=== PATIENT | male | born 1960 | race Caucasian/White ===

== ENCOUNTER 2017-12-06 13:13 | Outpatient (CLI) | payer BC ==
--- NOTE | 2017-12-06 15:45 | CT ---
CT THORAX WITH IV CONTRAST: DATE: 12/06/17. HISTORY: Followup right-sided pulmonary nodule. COMPARISON: 10/20/16. FINDINGS: The previously noted sub pleural-based nodular density in the right upper lobe posteriorly is no long er visualized and there is a mild area of pleural and parenchymal scarring in this region. Again not ed are changes of COPD with prominent bullous emphysematous changes in the right upper lobe. There is a new approximately 6 mm nodular density seen within the left lower lobe with a closely lynne cent smaller nodular density also present which is less well defined. The approximately 6 mm nodule demonstrates a central area of lucency on the axial images which is not appreciated on coronal reform atted images. This could be related to a very tiny area of cavitation. No additional pulmonary nodu le or mass is seen. There is evidence of prior granulomatous disease. There is no evidence of lymphadenopathy. No other interval change from prior exam. IMPRESSION: 1. Two small nodular densities left lower lobe, the largest measuring approximately 6 mm. Findings could potentially represent infectious process. Followup CT scan examination in 4-6 months is recomm ended. 2. Resolution of the pleural-based nodular density right upper lobe. There is scarring now present in this region. 3. Chronic obstructive pulmonary disease. POS: [facility]
[2017-12-06] MEDS ORDERED: Iopamidol 370 76% 100 ML VIAL ONE (16:23)
== END 2017-12-06 13:14 | disposition home or self-care (01) ==
LOC: CT 13:13
PROVIDERS: ATTEND Internal Medicine
DX: R91.1 Solitary pulmonary nodule (principal); F17.200 Nicotine dependence, unspecified, uncomplicated; J44.9 Chronic obstructive pulmonary disease, unspecified; J98.4 Other disorders of lung
CPT/HCPCS: 71260

== ENCOUNTER 2017-12-19 11:35 | Emergency (ER) | payer BC ==
[2017-12-19 12:22] LABS: #Eosinphils 0.1 thou/uL (0.0-0.7); #Lymphocytes 1.2 thou/uL (1.20-3.40); #Monocytes 0.6 thou/uL (0.11-0.59); %Basophils 0.5 % (0.0-1.0); %Eosinophils 1.1 % (0.0-10.0); %Lymphocytes 14.6 % (21.0-51.0); %Monocytes 7.6 % (0.0-10.0); %Neutrophils 76.2 % (42.0-75.0); Hemoglobin 15.9 g/dL (14.0-18.0); Mean Corpuscular HGB CONC 33.7 g/dL (32.0-36.0); Mean Corpuscular Hemoglobin 30.7 pg (27.0-31.0); Mean Corpuscular Volume 91.2 fl (80.0-94.0); Mean Platelet Volume 6.9 fL (7.4-10.4); Platelet Count 220 thou/uL (130-400); RBC Distribution Width 12.7 % (11.5-14.5); Red Blood Cell (RBC) Count 5.18 mill/uL (4.70-6.10); White Blood Cell (WBC) Count 7.9 thou/uL (4.8-10.8)
[2017-12-19] MEDS ORDERED: Nitroglycerin 2% Ointment 1 INCH/1 GM Packet ONE (12:42)
[2017-12-19 12:44] LABS: CKMB 2.8 ng/mL (0-6.6); Troponin I Less than 0.010 ng/mL (< 0.028)
[2017-12-19 12:52] LABS: ALT (SGPT) 30 U/L (8-55); AST (SGOT) 18 U/L (5-34); Albumin 4.2 g/dL (3.5-5.0); Alkaline Phosphatase 69 U/L (40-150); Anion Gap 11 mmol/L (10-20); BUN (Urea Nitrogen) 18 mg/dL (8.4-25.7); Bilirubin, Total 0.3 mg/dL (0.2-1.2); CK (CPK) 109 U/L (30-200); Calc. Creatinine Clearance 0 mL/min (70-130); Calcium 9.9 mg/dL (7.8-10.44); Carbon Dioxide 23 mmol/L (22-29); Chloride 106 mmol/L (98-107); Estimated GFR-MDRD 71; Glucose 105 mg/dL (70-105); Lipase 23 U/L (8-78); Potassium 4.1 mmol/L (3.5-5.1); Protein, Total 7.2 g/dL (6.0-8.3); Sodium 136 mmol/L (136-145)
--- NOTE | 2017-12-19 13:20 | RAD ---
CHEST 1 VIEW: HISTORY: Dyspnea. COMPARISON: CT chest from 12/06/17. FINDINGS: Cardiac silhouette is magnified by projection. Pulmonary vasculature is unremarkable. Mediastinum i s midline with aortic calcification. There is no confluent airspace consolidation or evidence of pne umothorax. IMPRESSION: Atherosclerosis. Stable radiographic appearance of the chest. POS: [facility]
== END 2017-12-19 14:09 | disposition home or self-care (01) ==
LOC: ERS 11:35
DX: I10 Essential (primary) hypertension (principal); E03.9 Hypothyroidism, unspecified; E78.5 Hyperlipidemia, unspecified; E78.2 Mixed hyperlipidemia; J45.909 Unspecified asthma, uncomplicated; F17.210 Nicotine dependence, cigarettes, uncomplicated; Z79.899 Other long term (current) drug therapy; Z79.82 Long term (current) use of aspirin
CPT/HCPCS: 36415; 71045; 80053; 82553; 83690; 83880; 84484; 85025; 85379; 93005; 96360

== ENCOUNTER 2023-10-21 09:21 | Outpatient (CLI) | payer BC | END 2023-10-21 09:22 | disposition home or self-care (01) | LOC: RAD 09:21 | PROVIDERS: ATTEND Family Medicine | DX: R06.00 Dyspnea, unspecified (principal); J98.4 Other disorders of lung | CPT/HCPCS: 71046 ==

== ENCOUNTER 2024-10-17 09:36 | Outpatient (CLI) | payer BC | END 2024-10-17 09:37 | disposition home or self-care (01) | LOC: RAD 09:36 | PROVIDERS: ATTEND Internal Medicine Critical Care Medicine | DX: R06.00 Dyspnea, unspecified (principal) | CPT/HCPCS: 71046 ==

== ENCOUNTER 2024-12-27 08:17 | Outpatient (CLI) | payer MEDICARE | END 2024-12-27 08:18 | disposition home or self-care (01) | LOC: SCSMRI 08:17 | PROVIDERS: ATTEND Family Medicine | DX: M54.12 Radiculopathy, cervical region (principal); M25.512 Pain in left shoulder; G89.29 Other chronic pain; R29.898 Other symptoms and signs involving the musculoskeletal system; S46.012A Strain of muscle(s) and tendon(s) of the rotator cuff of left shoulder, initial encounter; S43.432A Superior glenoid labrum lesion of left shoulder, initial encounter; M65.812 Other synovitis and tenosynovitis, left shoulder; M75.92 Shoulder lesion, unspecified, left shoulder; M48.02 Spinal stenosis, cervical region; R60.0 Localized edema | CPT/HCPCS: 72141 ==

== ENCOUNTER 2025-06-15 08:37 | Outpatient (CLI) | payer MEDICARE ==
[2025-06-15 09:37] LABS: Estimated GFR - POC 66.0
[2025-06-15] MEDS ORDERED: Iopamidol 370 76% 100 ML VIAL ONE (11:33)
== END 2025-06-15 08:38 | disposition home or self-care (01) ==
LOC: CT 08:37
PROVIDERS: ATTEND Physician Assistant Medical
DX: R10.32 Left lower quadrant pain (principal); K92.1 Melena; N32.3 Diverticulum of bladder; K57.30 Diverticulosis of large intestine without perforation or abscess without bleeding; R16.0 Hepatomegaly, not elsewhere classified; I70.0 Atherosclerosis of aorta; N28.1 Cyst of kidney, acquired; N32.89 Other specified disorders of bladder; M47.815 Spondylosis without myelopathy or radiculopathy, thoracolumbar region; M47.816 Spondylosis without myelopathy or radiculopathy, lumbar region; M85.80 Other specified disorders of bone density and structure, unspecified site
CPT/HCPCS: 36415; 74177; 82565; Q9967

== ENCOUNTER 2025-06-22 11:28 | Observation (INO) | payer MEDICARE ==
[2025-06-22] MEDS ORDERED: Ondansetron PF 4 MG/2 ML Vial ONE (12:06)
[2025-06-22 12:21] LABS: #Basophils 0.04 10x3/uL (0.0-0.2); #Eosinophils Less than 0.03 10x3/uL (0.0-0.7); #Monocytes 0.31 10x3/uL (0.11-0.59); #Neutrophils 4.69 10x3/uL (1.40-6.50); %Basophils 0.7 % (0.0-1.0); %Eosinophils 0.3 % (0.0-10.0); %Lymphocytes 11.9 % (21.0-51.0); %Monocytes 5.4 % (0.0-10.0); %Neutrophils 81.0 % (42.0-75.0); Hematocrit 45.1 % (42.0-52.0); Hemoglobin 15.3 g/dL (14.0-18.0); Mean Corpuscular Hemoglobin 29.6 pg (27.0-31.0); Mean Corpuscular Volume 87.2 fL (78.0-98.0); Platelet Count 197 10x3/uL (130-400); Red Blood Cell (RBC) Count 5.17 mill/uL (4.70-6.10); White Blood Cell (WBC) Count 5.79 10x3/uL (4.8-10.8)
[2025-06-22 12:40] LABS: ALT (SGPT) 29 U/L (Less than 45); AST (SGOT) 42 U/L (11-34); Albumin 4.0 g/dL (3.1-4.5); Alkaline Phosphatase 58 U/L (40-110); Anion Gap 12 mmol/L (10-20); BUN (Urea Nitrogen) 13 mg/dL (8.4-25.7); Bilirubin, Total 0.4 mg/dL (0.3-1.2); Calc. Creatinine Clearance 0 mL/min (70-130); Calcium 9.6 mg/dL (7.8-10.44); Carbon Dioxide 26 mmol/L (23-31); Chloride 100 mmol/L (98-107); Globulin 3.3 g/dL (2.4-3.5); Glucose 125 mg/dL (80-115); Lipase 9 U/L (8-78); Potassium 3.6 mmol/L (3.5-5.1); Sodium 134 mmol/L (136-145)
[2025-06-22 12:43] LABS: Troponin I Less than 0.010 ng/mL (< 0.028)
[2025-06-22] MEDS ORDERED: Iopamidol-370 76% 500 ML MDV (1 ML CHARGE) ONE (12:55)
[2025-06-22 13:35] LABS: Bacteria/HPF None Seen HPF (None Seen); CAUTI Indications for Culture Dysuria,urgency,freq; Glucose, Urine (Dipstick) Normal (Negative); Leukocyte Negative Leu/uL (Negative); Protein, Urine (Dipstick) Negative (Neg-Trace); Specific Gravity, Urine 1.040 (1.002-1.036); WBC/HPF 0-3 HPF (0-3)
[2025-06-22 13:38] LABS: Urine Culture Reflex No No
[2025-06-22] MEDS ORDERED: cefTRIAXone (ROCEPHIN) 2 GM VIAL ONE (14:53)
[2025-06-22] MEDS ORDERED: Ketorolac Tromethamine 30 MG (1 mL) VIAL IVP PRN (15:50)
[2025-06-22] MEDS ORDERED: Calcium Carbonate 500 MG ChewTAB PO PRN (15:51)
[2025-06-22] MEDS ORDERED: Senokot S 8.6-50 MG TAB PO PRN (15:51)
[2025-06-22] MEDS ORDERED: Melatonin 3 MG TAB PO PRN (15:51)
[2025-06-22] MEDS ORDERED: Ondansetron PF 4 MG/2 ML Vial IVP PRN (15:51)
[2025-06-22] MEDS ORDERED: Albuterol 200 PUFF (6.7GM INHALER) INH PRN (15:52)
[2025-06-22 16:16] LABS: Magnesium 2.2 mg/dL (1.6-2.6)
[2025-06-22 16:24] VITALS: BMI 24.1
[2025-06-22] MEDS: NS 0.9% w/ 20 MEQ KCL 1,000 ML/1,000 ML BAG IV SCH (16:43)
[2025-06-23] MEDS: Acetaminophen 325 MG TAB PO PRN (00:19)
[2025-06-23 05:10] LABS: #Basophils 0.07 10x3/uL (0.0-0.2); #Eosinophils 0.20 10x3/uL (0.0-0.7); #Monocytes 0.71 10x3/uL (0.11-0.59); #Neutrophils 4.74 10x3/uL (1.40-6.50); %Basophils 1.0 % (0.0-1.0); %Eosinophils 2.9 % (0.0-10.0); %Lymphocytes 17.1 % (21.0-51.0); %Monocytes 10.2 % (0.0-10.0); %Neutrophils 68.4 % (42.0-75.0); Hematocrit 40.2 % (42.0-52.0); Hemoglobin 13.4 g/dL (14.0-18.0); Mean Corpuscular Hemoglobin 29.3 pg (27.0-31.0); Mean Corpuscular Volume 88.0 fL (78.0-98.0); Platelet Count 183 10x3/uL (130-400); Red Blood Cell (RBC) Count 4.57 mill/uL (4.70-6.10); White Blood Cell (WBC) Count 6.94 10x3/uL (4.8-10.8)
[2025-06-23 05:25] LABS: Anion Gap 9 mmol/L (10-20); BUN (Urea Nitrogen) 11 mg/dL (8.4-25.7); Calc. Creatinine Clearance 80 mL/min (70-130); Calcium 8.4 mg/dL (7.8-10.44); Carbon Dioxide 26 mmol/L (23-31); Chloride 102 mmol/L (98-107); Glucose 103 mg/dL (80-115); Potassium 3.6 mmol/L (3.5-5.1); Sodium 133 mmol/L (136-145)
[2025-06-23] MEDS: Enoxaparin 40 MG (0.4 mL) SYRINGE SC SCH (08:24)
[2025-06-23] MEDS: Aspirin 81 mg Enteric Coated Tablet PO SCH (08:24)
[2025-06-23] MEDS: Pantoprazole 40 MG DR.TAB PO SCH (08:24)
[2025-06-23] MEDS: Losartan 25 MG TAB PO SCH (08:24)
[2025-06-23 12:08] VITALS: BP 118/69; TEMP 97.6
[2025-06-23] MEDS ORDERED: cefTRIAXone\\ROCEPHIN 1 GM in Sodium Chloride 0.9% 100 ML IVPB SCH (16:00)
[2025-06-23] MEDS ORDERED: Rosuvastatin 10 MG TAB PO SCH (21:00)
== END 2025-06-23 14:31 | disposition home or self-care (01) ==
LOC: ERS 11:28 → T4-B 15:09
PROVIDERS: ADMIT Internal Medicine; ATTEND Internal Medicine
DX: N39.0 Urinary tract infection, site not specified (principal); N32.3 Diverticulum of bladder; K59.00 Constipation, unspecified; I10 Essential (primary) hypertension; E78.5 Hyperlipidemia, unspecified; E03.9 Hypothyroidism, unspecified; J44.9 Chronic obstructive pulmonary disease, unspecified; Z87.891 Personal history of nicotine dependence; Z88.8 Allergy status to other drugs, medicaments and biological substances; Z88.6 Allergy status to analgesic agent; Z79.82 Long term (current) use of aspirin; Z79.51 Long term (current) use of inhaled steroids; Z79.890 Hormone replacement therapy; Z79.899 Other long term (current) drug therapy
CPT/HCPCS: 51702; 74177; 80048; 80053; 81001; 83690; 83735; 84484; 85025 ×2; 87040; 87086; 93005; 96365; 96375; 99285; G0378 ×3; J0696; J2270; J2405; J3480; Q9967; 36415

== ENCOUNTER 2025-06-28 10:44 | Emergency (ER) | payer MEDICARE ==
[2025-06-28] MEDS ORDERED: Ondansetron PF 4 MG/2 ML Vial ONE (11:18)
[2025-06-28 11:26] LABS: #Basophils 0.08 10x3/uL (0.0-0.2); #Eosinophils 0.03 10x3/uL (0.0-0.7); #Monocytes 0.50 10x3/uL (0.11-0.59); #Neutrophils 5.99 10x3/uL (1.40-6.50); %Basophils 1.1 % (0.0-1.0); %Eosinophils 0.4 % (0.0-10.0); %Lymphocytes 12.2 % (21.0-51.0); %Monocytes 6.6 % (0.0-10.0); %Neutrophils 79.2 % (42.0-75.0); Hematocrit 45.9 % (42.0-52.0); Hemoglobin 14.9 g/dL (14.0-18.0); Mean Corpuscular Hemoglobin 29.2 pg (27.0-31.0); Mean Corpuscular Volume 89.8 fL (78.0-98.0); Platelet Count 231 10x3/uL (130-400); Red Blood Cell (RBC) Count 5.11 mill/uL (4.70-6.10); White Blood Cell (WBC) Count 7.56 10x3/uL (4.8-10.8)
[2025-06-28 11:50] LABS: ALT (SGPT) 24 U/L (Less than 45); AST (SGOT) 19 U/L (11-34); Albumin 4.2 g/dL (3.1-4.5); Alkaline Phosphatase 62 U/L (40-110); Anion Gap 13 mmol/L (10-20); BUN (Urea Nitrogen) 15 mg/dL (8.4-25.7); Bilirubin, Total 0.5 mg/dL (0.3-1.2); Calc. Creatinine Clearance 0 mL/min (70-130); Calcium 9.4 mg/dL (7.8-10.44); Carbon Dioxide 21 mmol/L (23-31); Chloride 104 mmol/L (98-107); Globulin 3.2 g/dL (2.4-3.5); Glucose 130 mg/dL (80-115); Lipase 11 U/L (8-78); Potassium 4.2 mmol/L (3.5-5.1); Sodium 134 mmol/L (136-145)
[2025-06-28] MEDS ORDERED: Iopamidol-370 76% 500 ML MDV (1 ML CHARGE) ONE (12:01)
[2025-06-28 13:06] LABS: CAUTI Indications for Culture Pelvic or flank pain; Glucose, Urine (Dipstick) Normal (Negative); Leukocyte Negative Leu/uL (Negative); Protein, Urine (Dipstick) Negative (Neg-Trace); Specific Gravity, Urine 1.030 (1.002-1.036); WBC/HPF 0-3 HPF (0-3)
[2025-06-28 13:41] LABS: Bacteria/HPF 2+ HPF (None Seen)
[2025-06-28 13:43] LABS: Urine Culture Reflex No No
== END 2025-06-28 14:24 | disposition home or self-care (01) ==
LOC: ERS 10:44
DX: K59.00 Constipation, unspecified (principal); I10 Essential (primary) hypertension; J44.9 Chronic obstructive pulmonary disease, unspecified; F17.210 Nicotine dependence, cigarettes, uncomplicated
CPT/HCPCS: 74177; 80053; 81001; 83690; 85025; 96374; 96375; 99284; J2270; J2405; Q9967; 36415

== ENCOUNTER 2025-10-16 10:51 | Outpatient (CLI) | payer MEDICARE | END 2025-10-16 10:52 | disposition home or self-care (01) | LOC: RAD 10:51 | PROVIDERS: ATTEND Internal Medicine Critical Care Medicine | DX: R06.00 Dyspnea, unspecified (principal) | CPT/HCPCS: 71046 ==

== ENCOUNTER 2025-11-01 17:13 | Emergency (ER) | payer MEDICARE ==
[2025-11-01 19:33] LABS: #Basophils 0.10 10x3/uL (0.0-0.2); #Eosinophils 0.38 10x3/uL (0.0-0.7); #Monocytes 0.76 10x3/uL (0.11-0.59); #Neutrophils 4.75 10x3/uL (1.40-6.50); %Basophils 1.3 % (0.0-1.0); %Eosinophils 4.9 % (0.0-10.0); %Lymphocytes 22.1 % (21.0-51.0); %Monocytes 9.8 % (0.0-10.0); %Neutrophils 61.1 % (42.0-75.0); Hematocrit 41.7 % (42.0-52.0); Hemoglobin 13.9 g/dL (14.0-18.0); Mean Corpuscular Hemoglobin 28.9 pg (27.0-31.0); Mean Corpuscular Volume 86.7 fL (78.0-98.0); Platelet Count 222 10x3/uL (130-400); Red Blood Cell (RBC) Count 4.81 mill/uL (4.70-6.10); White Blood Cell (WBC) Count 7.77 10x3/uL (4.8-10.8)
[2025-11-01 19:52] LABS: ALT (SGPT) 20 U/L (Less than 45); AST (SGOT) 20 U/L (11-34); Albumin 3.8 g/dL (3.1-4.5); Alkaline Phosphatase 65 U/L (40-110); Anion Gap 11 mmol/L (10-20); BUN (Urea Nitrogen) 13 mg/dL (8.4-25.7); Bilirubin, Total 0.2 mg/dL (0.3-1.2); Calc. Creatinine Clearance 0 mL/min (70-130); Calcium 9.6 mg/dL (7.8-10.44); Carbon Dioxide 23 mmol/L (23-31); Chloride 106 mmol/L (98-107); Globulin 3.0 g/dL (2.4-3.5); Glucose 99 mg/dL (80-115); Lipase 14 U/L (8-78); Potassium 4.1 mmol/L (3.5-5.1); Sodium 136 mmol/L (136-145)
== END 2025-11-01 21:28 | disposition home or self-care (01) ==
LOC: ERS 17:13
DX: N49.2 Inflammatory disorders of scrotum (principal); N43.3 Hydrocele, unspecified; E03.9 Hypothyroidism, unspecified; E78.00 Pure hypercholesterolemia, unspecified; I10 Essential (primary) hypertension; J44.89 Other specified chronic obstructive pulmonary disease; F17.210 Nicotine dependence, cigarettes, uncomplicated; Z79.890 Hormone replacement therapy; Z79.51 Long term (current) use of inhaled steroids; Z79.82 Long term (current) use of aspirin; Z79.899 Other long term (current) drug therapy
CPT/HCPCS: 74177; 76870; 80053; 83690; 85025; 93976